=== PATIENT | female | born 1990 | race Caucasian/White ===

== ENCOUNTER → 2017-06-03 | Outpatient (CLI) | payer BC ==
[~2017-06-03] MED LIST: AZEL0.056; ERGO500037 PO; FLUT0.15 NAE; LEVO1IUD2 PV; LEVO200T PO; MECL1TAB42 PO; METF1000 PO; OMEP40CA41 PO; ONDA8TAB12 PO; PRED10TA PO
--- NOTE | 2017-06-03 10:07 | DIAGNOSTIC IMAGING REPORT ---
ULTRASOUND ABDOMEN COMPLETE CLINICAL HISTORY: Left upper quadrant and epigastric abdominal pain. Nausea. COMPARISON STUDY: No priors. TECHNIQUE: Real-time, grayscale, and color flow sonography of the abdomen was performed. Images are reviewed in the transverse and longitudinal planes. FINDINGS: Liver: The liver is normal in size and echotexture. There is no intrahepatic biliary ductal dilatation. The main portal vein is patent. Gallbladder: The gallbladder is normal in appearance. No gallstones are identified. There is no gallbladder wall thickening or pericholecystic fluid. A sonographic Chowdhury's sign is reportedly absent. The common bile duct measures up to 0.5 cm in diameter. Pancreas: Not well visualized due to overlying bowel gas. Spleen: The spleen is normal in size and echotexture, measuring 10.2 cm in length. Kidneys: The kidneys are normal in size and echotexture. There is no hydronephrosis. The right kidney measures 10.3 cm in length and the left kidney measures 10.5 cm in length. No shadowing calculi are identified. Abdominal vasculature: Visualized portions of the abdominal aorta and IVC are normal as imaged. Ascites: None. IMPRESSION: Unremarkable sonographic assessment of the abdomen. No gallstones are seen. Electronically signed by: Ren Ma M.D. 06/03/2017 10:06 AM Dictated Date/Time: 06/03/2017 9:59 AM
== END | disposition home or self-care (01) ==
LOC: C.ULTR 09:19
PROVIDERS: ATTEND Physician Assistant
DX: R10.13 Epigastric pain (principal); R10.12 Left upper quadrant pain; R11.2 Nausea with vomiting, unspecified

== ENCOUNTER → 2017-06-09 | Outpatient (CLI) | payer BC | END | disposition home or self-care (01) | LOC: C.LABSPEC 10:44 | PROVIDERS: ATTEND Physician Assistant | DX: Z01.419 Encounter for gynecological examination (general) (routine) without abnormal findings (principal) ==

== ENCOUNTER → 2017-06-09 | Outpatient (CLI) | payer BC | END | disposition home or self-care (01) | LOC: C.PAPS 11:26 | PROVIDERS: ATTEND Physician Assistant | DX: Z01.419 Encounter for gynecological examination (general) (routine) without abnormal findings (principal) ==

== ENCOUNTER 2017-06-23 18:51 | Emergency (ER) | payer BC ==
[~2017-06-23] VITALS: Ht 157.5 cm; Wt 144.3 kg
[~2017-06-23 18:51] MED LIST changes: +LEVO1IUD2 INT UTER; -LEVO1IUD2 PV; -ONDA8TAB12 PO
[2017-06-23 19:22] VITALS: Ht 157.5 cm; Wt 144.3 kg
[2017-06-23] MEDS ORDERED: ONDA8TAB12 PO (20:33)
[2017-06-23] MEDS ORDERED: ACETAMINOPHEN 500 MG TAB PO STA (21:15)
--- NOTE | 2017-06-23 21:20 | EMERGENCY ROOM VISIT NOTE ---
History Report prepared by Kari: Jose Delcid Under the Supervision of: Dr. Willie Mccabe D.O. First contact with patient: 21:13 Chief Complaint: TACHYCARDIA Stated Complaint: COUGH, FAST HEART RATE, CHEST PAIN- REFERRED Nursing Triage Summary: Patient ambulatory to triage with a steady and upright gait, states "I have been sick for a month. I had vomiting then a sinus infection then gastritis and acid reflux. Now, I am having a really bad cough. It's been brutal. I don't have any drainage and am not coughing anything. I saw the doctor just a little bit ago and they said that my heartrate was high. They did and EKG and told me to come here. I have some pain in my neck and chest. I think my throat is irritated." History of Present Illness The patient is a 27 year old female who presents to the Emergency Room with complaints of a worsening rapid heart rate over the past few days. She states that she was seen at a walk-in clinic prior to arrival due to a lingering cough , and was sent here due to her heart rate being in the 140s. The patient adds that she has been having chest burning. The patient says that she currently has a bad headache. She says that she was noted to have a fever here. The patient states that she has been sick for the past month, with the flu, then a sinus infection, and then gastritis. She notes that she had an EKG done at the clinic. The patient says that she took DayQuil this morning, and has taken that in the past. She denies any diarrhea or leg swelling or leg pain. The patient states that her last period was last month and it was normal. She says that she has thyroid disease and PCOS. Source of History: patient Onset: Over past few days Position: other (heart) Symptom Intensity: 140s Quality: other (rapid heart rate) Timing: worsening Associated Symptoms: + fevers, + headache, + cough, + chest pain, No diarrhea Note: Denies leg swelling or leg pain. Review of Systems See HPI for pertinent positives & negatives. A total of 10 systems reviewed and were otherwise negative. Past Medical & Surgical Medical Problems: (1) Hypothyroidism (2) Migraines Family History Cancer Diabetes mellitus Hypertension Social History Smoking Status: Never Smoker Marital Status: single Occupation Status: student Current/Historical Medications Scheduled Azithromycin (Zithromax Z-Ellis), 1 PKT PO UD Ergocalciferol (Vitamin D 33665 Unit), 50,000 UNIT PO WK Levonorgestrel (Iud) (Mirena), 1 DOSE INT UTER DIRECTED Thyroid (Lebo Thyroid), 1 TAB PO DAILY Scheduled PRN Ondansetron Hcl (Zofran), 8 MG PO TID PRN for Nausea or Vomiting Allergies Coded Allergies: Levothyroxine (Verified Allergy, Intermediate, "THROAT HIVES", 06/23/17) Physical Exam Vital Signs Date Time Temp Pulse Resp B/P (MAP) Pulse Ox O2 Delivery O2 Flow Rate FiO2 06/24/17 00:31 119/81 06/24/17 00:21 103 11 99 06/24/17 00:06 103 21 96 06/24/17 00:01 103/80 06/23/17 23:51 115 27 94 06/23/17 23:46 113 19 93 06/23/17 23:35 137/97 06/23/17 22:56 146 29 95 06/23/17 22:51 119 18 97 Room Air 06/23/17 22:36 137 19 95 06/23/17 22:31 135/72 06/23/17 22:21 126 24 98 06/23/17 22:06 123 26 97 06/23/17 22:01 127/89 06/23/17 21:51 129 26 95 Room Air 06/23/17 21:40 138 06/23/17 21:36 139 17 100 06/23/17 21:31 114/95 06/23/17 21:21 140 25 132/92 98 06/23/17 21:21 37.8 06/23/17 19:26 100 Room Air 06/23/17 19:22 38.0 137 20 159/106 97 Room Air Physical Exam GENERAL: Patient is awake, alert, and in no acute distress. Patient is resting comfortably and showing no signs of anxiety EYES: The conjunctivae are clear. The pupils are round and reactive. EARS, NOSE, MOUTH AND THROAT: The nose is without any evidence of any deformity. Mucous membranes are moist tongue is midline NECK: The neck is nontender and supple. RESPIRATORY: Lung sounds were diminished throughout. No tachypnea or conversational dyspnea. CARDIOVASCULAR: Heart sounds were tachycardic but regular. No definite murmurs noted to auscultation. GASTROINTESTINAL: The abdomen is soft. Bowel sounds are present in all quadrants. Abdomen is nontender MUSCULOSKELETAL/EXTREMITIES: There is no evidence of gross deformity full range of motion is noted in the hips and shoulders SKIN: There is no obvious evidence of any rash. There are no petechiae, pallor or cyanosis noted. NEUROLOGIC: Patient is awake alert and oriented x3 strength is symmetric patellar reflexes are 2+ bilaterally Medical Decision & Procedures ER Provider Diagnostic Interpretation: Radiology results as stated below per my review and radiologist interpretation: CHEST ONE VIEW PORTABLE HISTORY: EVALUATE RESPIRATORY DISTRESS.DYSPNEA COMPARISON: Chest 02/18/2015. FINDINGS: The lungs are clear. Cardiac silhouette is normal in size. No pleural effusions. No pneumothorax. Low lung volumes. IMPRESSION: No acute process. Electronically signed by: Delgado Galindo M.D. 06/23/2017 10:23 PM Dictated Date/Time: 06/23/2017 10:22 PM CTA CHEST: Motion artifact. No evidence of filling defect to suggest pulmonary embolism. Thoracic aorta within limits. No pericardial or pleural effusion. No focal consolidation. Radiologist: Basilio Hilliard MD Laboratory Results 06/23/17 21:40 Red Blood Count 4.73, Mean Corpuscular Volume 86.9, Mean Corpuscular Hemoglobin 30.2, Mean Corpuscular Hemoglobin Concent 34.8, Mean Platelet Volume 9.1, Neutrophils (%) (Auto) 71.4, Lymphocytes (%) (Auto) 14.2, Monocytes (%) (Auto) 11.0, Eosinophils (%) (Auto) 2.9, Basophils (%) (Auto) 0.4, Neutrophils # (Auto ) 5.72, Lymphocytes # (Auto) 1.14, Monocytes # (Auto) 0.88, Eosinophils # (Auto ) 0.23, Basophils # (Auto) 0.03 06/23/17 21:40 Test 06/23/17 21:00 06/23/17 21:26 06/23/17 21:40 Urine Color YELLOW Urine Appearance CLOUDY (CLEAR) Urine pH 6.5 (4.5-7.5) Urine Specific [place] 1.021 (1.000-1.030) Urine Protein NEG (NEG) Urine Glucose (UA) NEG (NEG) Urine Ketones NEG (NEG) Urine Occult Blood NEG (NEG) Urine Nitrite NEG (NEG) Urine Bilirubin NEG (NEG) Urine Urobilinogen NEG (NEG) Urine Leukocyte Esterase SMALL (NEG) Urine WBC (Auto) 5-10 /hpf (0-5) Urine RBC (Auto) 0-4 /hpf (0-4) Urine Hyaline Casts (Auto) 1-5 /lpf (0-5) Urine Epithelial Cells (Auto) >30 /lpf (0-5) Urine Bacteria (Auto) 2+ (NEG) Influenza Type A Antigen Neg for Influ A (NEG) Influenza Type B Antigen Neg for Influ B (NEG) White Blood Count 8.01 K/uL (4.8-10.8) Red Blood Count 4.73 M/uL (4.2-5.4) Hemoglobin 14.3 g/dL (12.0-16.0) Hematocrit 41.1 % (37-47) Mean Corpuscular Volume 86.9 fL (80-100) Mean Corpuscular Hemoglobin 30.2 pg (25-34) Mean Corpuscular Hemoglobin Concent 34.8 g/dl (32-36) Platelet Count 230 K/uL (130-400) Mean Platelet Volume 9.1 fL (7.4-10.4) Neutrophils (%) (Auto) 71.4 % Lymphocytes (%) (Auto) 14.2 % Monocytes (%) (Auto) 11.0 % Eosinophils (%) (Auto) 2.9 % Basophils (%) (Auto) 0.4 % Neutrophils # (Auto) 5.72 K/uL (1.4-6.5) Lymphocytes # (Auto) 1.14 K/uL (1.2-3.4) Monocytes # (Auto) 0.88 K/uL (0.11-0.59) Eosinophils # (Auto) 0.23 K/uL (0-0.5) Basophils # (Auto) 0.03 K/uL (0-0.2) RDW Standard Deviation 39.0 fL (36.4-46.3) RDW Coefficient of Variation 12.1 % (11.5-14.5) Immature Granulocyte % (Auto) 0.1 % Immature Granulocyte # (Auto) 0.01 K/uL (0.00-0.02) Prothrombin Time 10.6 SECONDS (9.0-12.0) Prothromb Time International Ratio 1.0 (0.9-1.1) Activated Partial Thromboplast Time 28.1 SECONDS (21.0-31.0) Partial Thromboplastin Ratio 1.1 D-Dimer 680 ug/L FEU (0-500) Anion Gap 6.0 mmol/L (3-11) Est Creatinine Clear Calc Drug Dose 149.0 ml/min Estimated GFR () 118.8 Estimated GFR (Non- 102.5 BUN/Creatinine Ratio 10.3 (10-20) Calcium Level 9.0 mg/dl (8.5-10.1) Total Bilirubin 0.4 mg/dl (0.2-1) Aspartate Amino Transf (AST/SGOT) 6 U/L (15-37) Alanine Aminotransferase (ALT/SGPT) 20 U/L (12-78) Alkaline Phosphatase 105 U/L (45-117) Troponin I < 0.015 ng/ml (0-0.045) Total Protein 8.2 gm/dl (6.4-8.2) Albumin 3.7 gm/dl (3.4-5.0) Globulin 4.5 gm/dl (2.5-4.0) Albumin/Globulin Ratio 0.8 (0.9-2) Human Chorionic Gonadotropin, Qual NEG (NEG) Laboratory results per my review. Medications Administered Medications (Trade) Dose Ordered Sig/Cassandra Route Start Time Stop Time Status Last Admin Dose Admin Acetaminophen (Tylenol Tab) 1,000 mg NOW STAT PO 06/23/17 21:15 06/23/17 21:17 DC 06/23/17 21:59 1,000 MG Sodium Chloride 1,000 ml @ 999 mls/hr Q1H1M STAT IV 06/23/17 23:48 06/24/17 00:48 DC 06/23/17 23:57 999 MLS/HR ECG Per My Interpretation Indication: palpitations Rate (beats per minute): 139 Rhythm: sinus tachycardia Findings: no ectopy, other (no acute ST segment abnormalties) Comparison ECG Date: increased rate otherwise no significant change from ED Course 2013: The patient was evaluated in room C12B. A complete history and physical examination were performed. 2113: Ordered Tylenol Tab 1000 mg PO. 8: Ordered NSS 1000 ml @ 999 mls/hr IV. 2356: Upon reevaluation, the patient is resting. I discussed the results and treatment plan with her. She verbalized agreement of the treatment plan. She was discharged home. Medical Decision Differential diagnosis: Etiologies such as premature contractions, electrolyte abnormality, cardiac dysrhythmia, thyroid dysfunction, pulmonary embolism, infection, gastrointestinal, as well as others were entertained. Nursing notes reviewed. The patient is a 27-year-old female who presented to the emergency department for an evaluation of tachycardia. She has been experiencing cough bronchitis symptoms but was sent to the emergency department from her primary care physician's office for CT the chest because of persistent tachycardia. The patient was treated with IV fluids and Tylenol in the emergency department. I discussed the patient's laboratory and radiographic studies with her. She was encouraged to call her primary care physician and schedule a follow-up appointment. Also recommended that she continue all medications as prescribed and return to the emergency department immediately if symptoms change worsen or the need arises. I also advised her not use any [id number]-[id number] medications it could increase her heart rate. Medication Reconcilliation Current Medication List: was personally reviewed by me Blood Pressure Screening Patient's blood pressure: Elevated blood pressure Blood pressure disposition: Elevated BP felt to be situational Impression Primary Impression: Bronchitis Additional Impression: Tachycardia Scribe Attestation The scribe's documentation has been prepared under my direction and personally reviewed by me in its entirety. I confirm that the note above accurately reflects all work, treatment, procedures, and medical decision making performed by me. Departure Information Dispostion Home / Self-Care Prescriptions Azithromycin (ZITHROMAX Z-ELLIS) 250 Mg Tab 1 PKT PO UD for 5 Days, #1 PKT Prov: Willie Mccabe, 06/24/17 Referrals Micki Cabral PA-C (PCP) Patient Instructions Bronchitis Acute, [facility], Tachycardia Additional Instructions Call your family doctor to schedule a follow-up appointment. Continue using Motrin and Tylenol as directed for body aches and fever. Avoid any strenuous activity. If symptoms are not improved within 48 hours start the antibiotic. Return to the emergency department immediately if symptoms change worsen or the need arises. Problem Qualifiers
[2017-06-23 21:21] VITALS: TEMP 37.8
[2017-06-23] MEDS ORDERED: THY/30 PO (21:52)
[2017-06-23 21:59] LABS: BASO % 0.4 %; BASO ABS # 0.03 K/uL (0-0.2); EOS % 2.9 %; EOS ABS # 0.23 K/uL (0-0.5); HEMATOCRIT 41.1 % (37-47); HEMOGLOBIN 14.3 g/dL (12.0-16.0); IG# 0.01 K/uL (0.00-0.02); LYMPH % 14.2 %; LYMPH ABS # 1.14 K/uL (1.2-3.4); MEAN CELL VOLUME 86.9 fL (80-100); MEAN CORPUSCULAR HEMOGLOBIN 30.2 pg (25-34); MEAN CORPUSCULAR HGB CONC 34.8 g/dl (32-36); MEAN PLATELET VOLUME 9.1 fL (7.4-10.4); MONO ABS # 0.88 K/uL (0.11-0.59); NEUT % 71.4 %; NEUT ABS # 5.72 K/uL (1.4-6.5); PLATELET COUNT 230 K/uL (130-400); RED CELL DISTRIBUTION WIDTH CV 12.1 % (11.5-14.5); WHITE BLOOD COUNT 8.01 K/uL (4.8-10.8)
[2017-06-23 22:10] LABS: PTT PATIENT 28.1 SECONDS (21.0-31.0)
[2017-06-23 22:16] LABS: INFLUENZA B ANTIGEN Neg for Influ B (NEG)
[2017-06-23 22:20] LABS: ALBUMIN 3.7 gm/dl (3.4-5.0); ALT/SGPT 20 U/L (12-78); BLOOD UREA NITROGEN 8 mg/dl (7-18); CARBON DIOXIDE 29 mmol/L (21-32); GLUCOSE 83 mg/dl (70-99); POTASSIUM 3.7 mmol/L (3.5-5.1); SODIUM 138 mmol/L (136-145)
--- NOTE | 2017-06-23 22:24 | DIAGNOSTIC IMAGING REPORT ---
CHEST ONE VIEW PORTABLE HISTORY: EVALUATE RESPIRATORY DISTRESS.DYSPNEA COMPARISON: Chest 02/18/2015. FINDINGS: The lungs are clear. Cardiac silhouette is normal in size. No pleural effusions. No pneumothorax. Low lung volumes. IMPRESSION: No acute process. Electronically signed by: Delgado Galindo M.D. 06/23/2017 10:23 PM Dictated Date/Time: 06/23/2017 10:22 PM
[2017-06-23 22:25] LABS: ALKALINE PHOSPHATASE 105 U/L (45-117); AST/SGOT 6 U/L (15-37); TOTAL PROTEIN 8.2 gm/dl (6.4-8.2)
[2017-06-23] MEDS ORDERED: OPTIRAY 320 IV PRN (22:45)
[2017-06-23] MEDS ORDERED: SODIUM CHLORIDE 0.9% 1000ML 1,000 ML IV STA (23:48)
[2017-06-24] MEDS ORDERED: AZITTAB PO (00:12)
[2017-06-24 00:21] VITALS: PULSE 103; O2SAT 99
[2017-06-24 00:31] VITALS: BP 119/81
--- NOTE | 2017-06-24 06:48 | DIAGNOSTIC IMAGING REPORT ---
(CHEST FOR PE) ANGIO WITH CT DOSE: 620.29 mGy.cm HISTORY: Chest pain dyspnea TECHNIQUE: Multiaxial CT images of the chest were performed following the intravenous administration of contrast to evaluate the pulmonary arteries. Maximal intensity projection images were also obtained. A dose lowering technique was utilized adhering to the principles of ALARA. COMPARISON STUDY: None. FINDINGS: There is a normal caliber thoracic aorta with no evidence for dissection. There is no evidence for pulmonary embolus. No pleural effusions. No pneumothorax. The liver and spleen are unremarkable. No mediastinal or hilar lymphadenopathy. The central airways are patent. The lungs are clear. IMPRESSION: No evidence for pulmonary embolus. The above report was generated using voice recognition software. It may contain grammatical, syntax or spelling errors. Electronically signed by: Clayton Brown M.D. 06/24/2017 6:47 AM Dictated Date/Time: 06/24/2017 6:46 AM
== END 2017-06-24 00:38 | disposition home or self-care (01) ==
LOC: C.EDB 18:53 → C.EDC 06-24 00:38
DX: J40 Bronchitis, not specified as acute or chronic (principal); R00.0 Tachycardia, unspecified; E03.9 Hypothyroidism, unspecified; E28.2 Polycystic ovarian syndrome; Z79.899 Other long term (current) drug therapy; Z88.8 Allergy status to other drugs, medicaments and biological substances; Z97.5 Presence of (intrauterine) contraceptive device; Z82.49 Family history of ischemic heart disease and other diseases of the circulatory system; Z83.3 Family history of diabetes mellitus

== ENCOUNTER 2017-08-10 09:54 | Emergency (ER) | payer BC ==
[~2017-08-10] VITALS: Ht 157.5 cm; Wt 146.1 kg
[~2017-08-10 09:54] MED LIST changes: -AZEL0.056; -FLUT0.15 NAE; -LEVO200T PO; -MECL1TAB42 PO; -METF1000 PO; -OMEP40CA41 PO; +ONDA8TAB12 PO; -PRED10TA PO; +THY/30 PO
[2017-08-10 10:01] VITALS: TEMP 36.9; Ht 157.5 cm; Wt 146.1 kg
--- NOTE | 2017-08-10 10:30 | EMERGENCY ROOM VISIT NOTE ---
History Report prepared by Kari: Stacy Posada Under the Supervision of: Dr. Alexey Garcia M.D. First contact with patient: 10:15 Chief Complaint: HEADACHE Stated Complaint: NAUSEA, HEADACHE, SWEATS History of Present Illness The patient is a 27 year old female who presents to the Emergency Room with complaints of constant vomiting beginning last night. The patient also reports a headache which she states is "the worst headache of my life". The patient has a history of migraines. She states the last time she was able to keep food down was last night. She also reports mild abdominal pain and nausea. The patient has an IUD. The patient was seen by her PCP this morning who referred her to the ED. Source of History: patient Onset: last night Position: other (generalized) Quality: other (vomiting) Timing: constant Associated Symptoms: + headache, + nausea, + vomiting, + abdominal pain Review of Systems See HPI for pertinent positives & negatives. A total of 10 systems reviewed and were otherwise negative. Past Medical & Surgical Medical Problems: (1) Hypothyroidism (2) Migraines Family History Cancer Diabetes mellitus Hypertension Social History Smoking Status: Never Smoker Marital Status: single Occupation Status: student Current/Historical Medications Scheduled Ergocalciferol (Vitamin D 14942 Unit), 50,000 UNIT PO WK Levonorgestrel (Iud) (Mirena), 1 DOSE INT UTER DIRECTED Pantoprazole (Protonix), 40 MG PO BID Ranitidine (Zantac), 150 MG PO DAILY Scheduled PRN Ondansetron Hcl (Zofran), 8 MG PO TID PRN for Nausea or Vomiting Allergies Coded Allergies: Levothyroxine (Verified Allergy, Intermediate, "THROAT HIVES", 08/10/17) Physical Exam Vital Signs Date Time Temp Pulse Resp B/P (MAP) Pulse Ox O2 Delivery O2 Flow Rate FiO2 08/10/17 12:47 96 16 146/89 97 08/10/17 12:16 96 16 146/89 97 Room Air 08/10/17 10:01 36.9 131 18 131/81 95 Room Air Physical Exam GENERAL: Awake, alert, well-appearing, laughing on exam, in no acute distress HENT: Normocephalic, atraumatic. Oropharynx unremarkable. EYES: Normal conjunctiva. Sclera non-icteric. NECK: Supple. No nuchal rigidity. FROM. No JVD. No evidence of meningitis or encephalitis on exam. RESPIRATORY: Clear to auscultation. CARDIAC: Regular rate, normal rhythm. Extremities warm and well perfused. Pulses equal. ABDOMEN: Soft, non-distended. No tenderness to palpation. No rebound or guarding. No masses. RECTAL: Deferred. MUSCULOSKELETAL: Chest examination reveals no tenderness. The back is symmetrical on inspection without obvious abnormality. There is no CVA tenderness to palpation. No joint edema. LOWER EXTREMITIES: Calves are equal size bilaterally and non-tender. No edema. No discoloration. NEURO: Normal sensorium. No sensory or motor deficits noted. SKIN: No rash or jaundice noted. Medical Decision & Procedures ER Provider Diagnostic Interpretation: Radiology results as stated below per my review and radiologist interpretation: CT HEAD WITHOUT CONTRAST (CT) FINDINGS: No intra or extra-axial mass lesions are visualized. There is no CT evidence of acute cortical infarction. There is no evidence of midline shift. There is no acute hemorrhage. No calvarial fractures are visualized. There is a stable prominent left posterior parietal lobe sulcus. There is no evidence of pathologic ventricular dilatation. There is no evidence of acute sinusitis IMPRESSION: No acute intracranial findings Electronically signed by: Constantine Fonseca M.D. Laboratory Results 08/10/17 11:00 Red Blood Count 4.90, Mean Corpuscular Volume 85.5, Mean Corpuscular Hemoglobin 30.4, Mean Corpuscular Hemoglobin Concent 35.6, Mean Platelet Volume 9.2, Neutrophils (%) (Auto) 85.9, Lymphocytes (%) (Auto) 7.3, Monocytes (%) (Auto) 5.3, Eosinophils (%) (Auto) 1.1, Basophils (%) (Auto) 0.1, Neutrophils # (Auto) 10.11, Lymphocytes # (Auto) 0.86, Monocytes # (Auto) 0.62, Eosinophils # (Auto) 0.13, Basophils # (Auto) 0.01 08/10/17 11:00 Test 08/10/17 11:00 White Blood Count 11.76 K/uL (4.8-10.8) Red Blood Count 4.90 M/uL (4.2-5.4) Hemoglobin 14.9 g/dL (12.0-16.0) Hematocrit 41.9 % (37-47) Mean Corpuscular Volume 85.5 fL (80-100) Mean Corpuscular Hemoglobin 30.4 pg (25-34) Mean Corpuscular Hemoglobin Concent 35.6 g/dl (32-36) Platelet Count 237 K/uL (130-400) Mean Platelet Volume 9.2 fL (7.4-10.4) Neutrophils (%) (Auto) 85.9 % Lymphocytes (%) (Auto) 7.3 % Monocytes (%) (Auto) 5.3 % Eosinophils (%) (Auto) 1.1 % Basophils (%) (Auto) 0.1 % Neutrophils # (Auto) 10.11 K/uL (1.4-6.5) Lymphocytes # (Auto) 0.86 K/uL (1.2-3.4) Monocytes # (Auto) 0.62 K/uL (0.11-0.59) Eosinophils # (Auto) 0.13 K/uL (0-0.5) Basophils # (Auto) 0.01 K/uL (0-0.2) RDW Standard Deviation 37.8 fL (36.4-46.3) RDW Coefficient of Variation 12.2 % (11.5-14.5) Immature Granulocyte % (Auto) 0.3 % Immature Granulocyte # (Auto) 0.03 K/uL (0.00-0.02) Anion Gap 9.0 mmol/L (3-11) Est Creatinine Clear Calc Drug Dose 182.1 ml/min Estimated GFR () 142.3 Estimated GFR (Non- 122.8 BUN/Creatinine Ratio 20.2 (10-20) Calcium Level 8.7 mg/dl (8.5-10.1) Total Bilirubin 0.6 mg/dl (0.2-1) Direct Bilirubin 0.2 mg/dl (0-0.2) Aspartate Amino Transf (AST/SGOT) 5 U/L (15-37) Alanine Aminotransferase (ALT/SGPT) 21 U/L (12-78) Alkaline Phosphatase 102 U/L (45-117) Total Protein 7.9 gm/dl (6.4-8.2) Albumin 3.5 gm/dl (3.4-5.0) Lipase 91 U/L (73-393) Human Chorionic Gonadotropin, Qual NEG (NEG) Labs reviewed by ED physician. Medications Administered Medications (Trade) Dose Ordered Sig/Cassandra Route Start Time Stop Time Status Last Admin Dose Admin Sodium Chloride 1,000 ml @ 999 mls/hr Q1H1M STAT IV 08/10/17 10:36 08/10/17 11:36 DC 08/10/17 11:01 999 MLS/HR Ketorolac Tromethamine (Toradol Inj) 30 mg NOW STAT IV 08/10/17 10:36 08/10/17 10:39 DC 08/10/17 11:01 30 MG Prochlorperazine Edisylate (Compazine Inj) 10 mg NOW STAT IV 08/10/17 10:36 08/10/17 10:39 DC 08/10/17 11:02 10 MG Diphenhydramine HCl (Benadryl Inj) 50 mg NOW STAT IV 08/10/17 10:36 08/10/17 10:39 DC 08/10/17 11:01 50 MG Magnesium Sulfate (Magnesium Sulfate) 1 gm NOW STAT IV 08/10/17 10:36 08/10/17 10:39 DC 08/10/17 11:01 1 GM ECG Per My Interpretation Indication: vomiting Rate (beats per minute): 125 Rhythm: sinus tachycardia Findings: other (no ST elevation or depression, normal axis) Change: Repeat: Sinus tachycardia 101 bpm, no ST elevation or depression ED Course 1022: Past medical records reviewed. The patient was evaluated in room B11B. A complete history and physical examination was performed. 1036: Ordered Magnesium Sulfate 1 gm IV, Benadryl Inj 50 mg IV, Compazine Inj 10 mg IV, Toradol Inj 30 mg IV, Sodium Chloride 1000 ml @ 999 mls/hr. 1128:The patient is feeling better on reassessment. 1239: Upon reexamination the patient is resting comfortably. I discussed results and treatment plan with the patient. She verbalizes agreement and understanding. The patient is ready for discharge. Medical Decision Differential diagnosis: Etiologies such as migraine headache, meningitis, sinusitis, CO exposure, ICH, SAH, infection, tumor, headache, sinus thrombosis, arterial dissection, as well as others were entertained. This is a 27-year-old female who presents emergency department complaining of vomiting as well as a headache. The patient reports this is not the worst headache of her life and she does not have any evidence of meningitis or encephalitis on examination. The patient was sent for CAT scan of the head which did not show any acute process. In addition the patient has a slight elevation in her white blood cell count which I believe is from vomiting. She is given a normal saline bolus as well as Toradol Compazine and Benadryl. Using shared medical decision making the patient refused a lumbar puncture here in the emergency department however I stressed the need to return for an LP if she continues to have a headache and is unable to keep anything down. Patient and significant other were in agreement with the treatment plan. Medication Reconcilliation Current Medication List: was personally reviewed by me Blood Pressure Screening Patient's blood pressure: Elevated blood pressure Blood pressure disposition: Referred to PCP Impression Primary Impression: Vomiting Scribe Attestation The scribe's documentation has been prepared under my direction and personally reviewed by me in its entirety. I confirm that the note above accurately reflects all work, treatment, procedures, and medical decision making performed by me. Departure Information Dispostion Home / Self-Care Referrals Micki Cabral PA-C (PCP) Forms HOME CARE DOCUMENTATION FORM, IMPORTANT VISIT INFORMATION Patient Instructions Headache Pain, [facility] Additional Instructions You have been examined and treated today on an emergency basis only. This is not a substitute for, or an effort to provide, complete comprehensive medical care. It is impossible to recognize and treat all injuries or illnesses in a single emergency department visit. It is therefore important that you follow up closely with Dr Cabral. Call as soon as possible for an appointment. Thank you for your time and consideration. I look forward to speaking with you again soon. Please don't hesitate to call us if you have any questions. Problem Qualifiers Primary Impression: Vomiting Vomiting type: unspecified Vomiting Intractability: unspecified Nausea presence: unspecified Qualified Codes: R11.10 - Vomiting, unspecified
[2017-08-10] MEDS ORDERED: KETOROLAC TROMETHAMINE 30 MG/ML VIAL IV STA (10:36)
[2017-08-10] MEDS ORDERED: MAGNESIUM SULFATE 1GM / D5W 1 GM BAG IV STA (10:36)
[2017-08-10] MEDS ORDERED: SODIUM CHLORIDE 0.9% 1000ML 1,000 ML IV STA (10:36)
[2017-08-10] MEDS ORDERED: DiphenhydrAMINE HCL 50 MG/ML VIAL IV STA (10:36)
[2017-08-10] MEDS ORDERED: PROCHLORPERAZINE 5 MG/ML 2 ML VIAL IV STA (10:36)
[2017-08-10] MEDS ORDERED: RANI150T85 PO (10:40)
[2017-08-10] MEDS ORDERED: PANT40TA PO (10:40)
[2017-08-10 11:10] LABS: BASO % 0.1 %; BASO ABS # 0.01 K/uL (0-0.2); EOS % 1.1 %; EOS ABS # 0.13 K/uL (0-0.5); HEMATOCRIT 41.9 % (37-47); HEMOGLOBIN 14.9 g/dL (12.0-16.0); IG# 0.03 K/uL (0.00-0.02); LYMPH % 7.3 %; LYMPH ABS # 0.86 K/uL (1.2-3.4); MEAN CELL VOLUME 85.5 fL (80-100); MEAN CORPUSCULAR HEMOGLOBIN 30.4 pg (25-34); MEAN CORPUSCULAR HGB CONC 35.6 g/dl (32-36); MEAN PLATELET VOLUME 9.2 fL (7.4-10.4); MONO % 5.3 %; MONO ABS # 0.62 K/uL (0.11-0.59); NEUT % 85.9 %; NEUT ABS # 10.11 K/uL (1.4-6.5); PLATELET COUNT 237 K/uL (130-400); RED CELL DISTRIBUTION WIDTH CV 12.2 % (11.5-14.5); RED CELL DISTRIBUTION WIDTH SD 37.8 fL (36.4-46.3); WHITE BLOOD COUNT 11.76 K/uL (4.8-10.8)
[2017-08-10 11:27] LABS: ALBUMIN 3.5 gm/dl (3.4-5.0); CALCIUM 8.7 mg/dl (8.5-10.1); CREATININE 0.66 mg/dl (0.60-1.20); POTASSIUM 3.7 mmol/L (3.5-5.1)
[2017-08-10 11:30] LABS: TOTAL PROTEIN 7.9 gm/dl (6.4-8.2)
--- NOTE | 2017-08-10 12:06 | DIAGNOSTIC IMAGING REPORT ---
CT HEAD WITHOUT CONTRAST (CT) CLINICAL HISTORY: Weakness, nausea, headache, sweats. COMPARISON STUDY: 03/12/2013 TECHNIQUE: Axial CT of the brain is performed from the vertex to the skull base. IV contrast was not administered for this examination. A dose lowering technique was utilized adhering to the principles of ALARA. CT DOSE: 614.27 mGy.cm FINDINGS: No intra or extra-axial mass lesions are visualized. There is no CT evidence of acute cortical infarction. There is no evidence of midline shift. There is no acute hemorrhage. No calvarial fractures are visualized. There is a stable prominent left posterior parietal lobe sulcus. There is no evidence of pathologic ventricular dilatation. There is no evidence of acute sinusitis IMPRESSION: No acute intracranial findings Electronically signed by: Constantine Fonseca M.D. 08/10/2017 12:04 PM Dictated Date/Time: 08/10/2017 11:58 AM
[2017-08-10 12:47] VITALS: BP 146/89; PULSE 96; O2SAT 97
== END 2017-08-10 12:48 | disposition home or self-care (01) ==
LOC: C.EDB 09:56
DX: R11.2 Nausea with vomiting, unspecified (principal); D72.829 Elevated white blood cell count, unspecified; R51 Headache; R10.9 Unspecified abdominal pain; Z97.5 Presence of (intrauterine) contraceptive device; Z88.8 Allergy status to other drugs, medicaments and biological substances; Z83.3 Family history of diabetes mellitus; Z82.49 Family history of ischemic heart disease and other diseases of the circulatory system

== ENCOUNTER → 2017-09-14 | Outpatient (CLI) | payer BC ==
[~2017-09-14] MED LIST changes: +PANT40TA PO; +RANI150T85 PO; -THY/30 PO
== END | disposition home or self-care (01) ==
LOC: C.LABPVFM 07:36
PROVIDERS: ATTEND Internal Medicine Endocrinology, Diabetes & Metabolism
DX: E03.9 Hypothyroidism, unspecified (principal)

== ENCOUNTER 2018-10-10 21:54 | Inpatient (IN) ==
[2018-10-11] MEDS ORDERED: ZOLPIDEM TARTRATE 10 MG TAB PO ONE (01:02)
--- NOTE | 2018-10-11 01:13 | Obstetrical Progress Note ---
Date of Service October 11, 2018 Assessment & Plan (1) Supervision of normal intrauterine in primigravida: Subjective The patient is a 28-year-old 1 para 0 cc of 1 unit 40+ weeks gestational age who presents to labor and delivery for labor check. Patient states that she has been having contractions for the last 24 hours but they increased in intensity within the last 6 hours. She denies rupture of membranes or vaginal bleeding. The patient transferred her obstetrical. The patient transferred her care to this practice at 26 weeks gestational age and has been unremarkable to date. Patient had a growth scan at 32 weeks for morbid obesity which showed an estimated weight at the 50th percentile. Physical Exam Gastrointestinal (Abdomen): Gravid, vertex, mild palpable contractions every 6 minutes Genitourinary: OB Exam Monitor Tracing: + category I Cervix: 1 cm / 50%/-2 Results & Data Vital Signs (Past 12 Hours) Vital Signs Temp Pulse Resp BP 10/11/18 01:02 96 H 145/95 H 10/10/18 22:39 90 142/95 H 10/10/18 22:16 104 H 152/89 H 10/10/18 22:11 111 H 157/94 H 10/10/18 22:09 36.6 C 111 H 18 157/94 H 10/10/18 22:06 36.6 C 18 10/10/18 22:05 117 H 151/97 H
[2018-10-11] MEDS ORDERED: OXYTOCIN 30 UNITS/500 ML BAG IV PRN ×3 (01:25→17:15)
[2018-10-11] MEDS ORDERED: PENICILLIN G POTASSIUM 6 MU in DEXTROSE 5% 250 ML IV STA (01:32)
--- NOTE | 2018-10-11 01:40 | History & Physical Report ---
Date of Service October 11, 2018 Assessment & Plan (1) Supervision of normal intrauterine in primigravida: - heart rate tracing category 1 -Patient has been observed for over 2 hours with no cervical change -However, patient has persistently elevated blood pressures with diastolics in the high 80s low 90s -Patient was seen in the office today for routine OB check and had +1 protein, trace protein on presentation here- -considering the elevated blood pressure postterm, do not feel prudent to discharge patient home. -We will admit patient and start GBS prophylaxis -We will check preeclamptic labs -We will observe for spontaneous cervical change -If no cervical change in 4 hours will start Pitocin -Discussed with patient, all questions answered History of Present Illness Chief Complaint: Labor Check Primary Care Provider: Micki Cabral PA-C The patient is a 28-year-old 1 para 0 with an EDC of 07 October at 40+ weeks gestational age who presented to labor and delivery for labor check. The patient had been having contractions for the previous 24 hours, but they increased in intensity over the last 6 hours. The patient denied rupture of membranes or vaginal bleeding. The patient transferred her obstetrical care to this practice at 26 weeks gestational age. She had a growth scan at 32 weeks gestational age for morbid obesity which showed an estimated weight at the 58th percentile. The patient had a suboptimal cardiac examination on anatomy scan, but had a normal echocardiogram. Laboratory values for the show blood type of O+, antibody negative, rubella immune, hepatitis B negative, she had a normal 1 hour Glucola at 16 and 28 weeks, and a positive third trimester beta strep culture. Allergies Allergy/AdvReac Type Severity Reaction Status Date / Time levothyroxine Allergy Intermediate Hives Verified 10/10/18 23:08 Home Medications Home Medications Medication Instructions Recorded Confirmed Type levothyroxine 200 mcg PO DAILY 10/10/18 10/10/18 History nystatin 1 applic TOPICAL BID PRN 10/10/18 10/10/18 History vit no.[id number] 1 tab PO DAILY 10/10/18 10/10/18 History [ Vitamin] Patient History Medical History Migraines (Chronic) Hypothyroidism (Chronic) Follows with Dr. Strauss GERD (gastroesophageal reflux disease) Insulin resistance PCOS (polycystic ovarian syndrome) [place] teeth removed Bronchitis (Resolved) Headache (Resolved) Pleurisy (Resolved) Urticaria (Resolved) Family History Other Cancer Diabetes Gallbladder disease Hypertension Social History Preferred Language: [place] marital status: Current Living Situation: Significant Other Feels Safe at Home: Yes Safety Concerns: Feels Safe At This Time Smoking Status: Never smoker Do You Dip or Chew Tobacco: No Second Hand Exposure: No Tobacco Cessation Education Requested by Patient: No Hx Alcohol Use: No Hx Substance Use: No Physical Exam Constitutional: WD/WN, vitals as above Respiratory: Auscultation: lungs clear to auscultation bilaterally Cardiovascular: RRR, no murmur, no edema Extremities: no calf tenderness Gastrointestinal (Abdomen): Gravid, vertex, positive heart tones, estimated weight of 7-1/2 pounds, Genitourinary: Cervix: 1 cm / 50%/-2 station Results & Data Vital Signs (Past 12 Hours) Vital Signs Temp Pulse Pulse Resp BP BP 10/11/18 01:15 95 H 18 141/78 H 10/11/18 01:13 95 H 141/78 H 10/11/18 01:02 96 H 145/95 H 10/10/18 22:39 90 142/95 H 10/10/18 22:16 104 H 152/89 H 10/10/18 22:11 111 H 157/94 H 10/10/18 22:09 36.6 C 111 H 18 157/94 H 10/10/18 22:06 36.6 C 18 10/10/18 22:05 117 H 151/97 H
[2018-10-11 02:04] LABS: Hematocrit (blood only) 40.9 % (37-47); Hemoglobin 14.1 g/dL (12.0-16.0); Mean Platelet Volume 10.3 fL (7.4-10.4); Platelet Count 229 K/uL (130-400); RDW Coefficient of Variation 13.4 % (11.5-14.5); RDW Standard Deviation 41.4 fL (36.4-46.3); Red Blood Count 4.81 M/uL (4.2-5.4); White Blood Count 18.78 K/uL (4.8-10.8)
[2018-10-11] MEDS: LACTATED RINGER'S 1,000 ML IV PRN ×3 (02:05→09:58)
[2018-10-11 02:06] LABS: Mean Corpuscular Hgb Conc 34.5 g/dL (32-36)
[2018-10-11 02:12] LABS: INR 0.9 (0.9-1.1); Prothrombin Time 9.4 Seconds (9.0-12.0)
[2018-10-11 02:20] LABS: Alanine Aminotransferase 14 U/L (12-78); Albumin Level 2.8 gm/dl (3.4-5.0); Aspartate Aminotransferase 8 U/L (15-37); Bilirubin Direct < 0.1 mg/dl (0-0.2); Creatinine Clr Calc Pharmacy 241.7 ml/min; Est GFR (African American) > 150.0; Est GFR (Non-African American) 131.9; Uric Acid 4.6 mg/dl (2.6-7.2)
[2018-10-11 02:23] LABS: Alkaline Phosphatase 221 U/L (45-117); Bilirubin,Total 0.3 mg/dl (0.2-1); Total Protein 7.7 gm/dl (6.4-8.2)
[2018-10-11] MEDS ORDERED: CALCIUM CARBONATE 500 MG CHEWABLE TAB ONE (02:51)
[2018-10-11] MEDS: BUTORPHANOL TARTRATE 2 MG/ML VIAL IV PRN ×2 (03:13→05:29)
[2018-10-11] MEDS: PENICILLIN G POTASSIUM 3 MU in DEXTROSE 5% 100 ML IV PRN ×3 (06:09→14:41)
--- NOTE | 2018-10-11 06:14 | Labor Progress Brief Note ---
Date of Service October 11, 2018 Subjective Stadol x2, Assessment & Plan (1) Supervision of normal intrauterine in primigravida: -Tracing category 1 -PIH labs all within normal limits -While the patient has made cervical change, contractions have spaced with Stadol -We will start Pitocin per induction protocol Physical Exam Genitourinary: Cervix: 3 cm / 80%/-2 Results & Data Vital Signs (Past 12 Hours) Vital Signs Temp Pulse Pulse Resp BP BP Pulse Ox 10/11/18 06:10 109 H 91 10/11/18 06:05 107 H 93 10/11/18 06:00 114 H 93 10/11/18 05:53 127 H 92 10/11/18 05:48 111 H 93 10/11/18 05:43 108 H 94 10/11/18 05:38 109 H 95 10/11/18 05:36 110 H 120/67 10/11/18 05:34 109 H 85 L 10/11/18 05:33 109 H 94 10/11/18 05:28 111 H 94 10/11/18 05:23 113 H 94 10/11/18 05:18 109 H 96 10/11/18 05:13 128 H 95 10/11/18 05:01 109 H 98 10/11/18 04:56 105 H 95 10/11/18 04:51 117 H 96 10/11/18 04:46 102 H 96 10/11/18 04:41 102 H 96 10/11/18 04:36 110 H 95 10/11/18 04:32 36.5 C 18 10/11/18 04:31 110 H 147/80 H 91 10/11/18 04:26 95 H 93 10/11/18 04:21 93 H 94 10/11/18 04:16 93 H 94 10/11/18 04:11 97 H 95 10/11/18 04:06 93 H 92 10/11/18 04:01 96 H 92 10/11/18 03:56 98 H 92 10/11/18 03:51 111 H 93 10/11/18 03:46 97 H 91 10/11/18 03:41 106 H 92 10/11/18 03:36 105 H 93 10/11/18 03:31 98 H 91 10/11/18 03:26 101 H 90 10/11/18 03:21 102 H 94 10/11/18 03:16 107 H 94 10/11/18 03:11 107 H 93 10/11/18 03:10 105 H 142/86 H 10/11/18 03:06 111 H 94 10/11/18 03:01 113 H 92 10/11/18 02:52 138 H 94 10/11/18 02:47 120 H 93 10/11/18 02:42 134 H 94 10/11/18 01:15 95 H 18 141/78 H 10/11/18 01:13 95 H 141/78 H 10/11/18 01:02 96 H 145/95 H 10/10/18 22:39 90 142/95 H 10/10/18 22:16 104 H 152/89 H 10/10/18 22:11 111 H 157/94 H 10/10/18 22:09 36.6 C 111 H 18 157/94 H 10/10/18 22:06 36.6 C 18 10/10/18 22:05 117 H 151/97 H
--- NOTE | 2018-10-11 09:20 | Obstetrical Progress Note ---
Date of Service October 11, 2018 Assessment & Plan (1) Supervision of normal intrauterine in primigravida: - Tracing category 1 - PIH labs all within normal limits - Progressing. AROM clr, FSE, IUPC placed - Continue Pitocin per induction protocol - requesting epidural Subjective Painful with contractions Physical Exam Genitourinary: OB Exam Abdomen: + vertex Manual OB Exam: + cervical dilation 4 cm, + cervical effacement 80%, + station -2 and + amniotic fluid clear OB Exam Monitor Tracing: + scalp electrode used, + intra-uterine pressure catheter used and + category I Results & Data Vital Signs (Past 12 Hours) Vital Signs Temp Pulse Pulse Resp BP BP Pulse Ox 10/11/18 08:30 118 H 95 10/11/18 08:25 117 H 97 10/11/18 08:20 117 H 95 10/11/18 08:15 128 H 98 10/11/18 08:14 114 H 82 L 10/11/18 07:26 112 H 143/85 H 10/11/18 07:25 36.7 C 22 10/11/18 06:45 109 H 93 10/11/18 06:40 109 H 94 10/11/18 06:35 120 H 95 10/11/18 06:30 109 H 93 10/11/18 06:25 108 H 94 10/11/18 06:20 112 H 92 10/11/18 06:15 117 H 94 10/11/18 06:10 109 H 91 10/11/18 06:05 107 H 93 10/11/18 06:00 114 H 93 10/11/18 05:53 127 H 92 10/11/18 05:48 111 H 93 10/11/18 05:43 108 H 94 10/11/18 05:38 109 H 95 10/11/18 05:36 110 H 120/67 10/11/18 05:34 109 H 85 L 10/11/18 05:33 109 H 94 10/11/18 05:28 111 H 94 10/11/18 05:23 113 H 94 10/11/18 05:18 109 H 96 10/11/18 05:13 128 H 95 10/11/18 05:01 109 H 98 10/11/18 04:56 105 H 95 10/11/18 04:51 117 H 96 10/11/18 04:46 102 H 96 10/11/18 04:41 102 H 96 10/11/18 04:36 110 H 95 10/11/18 04:32 36.5 C 18 10/11/18 04:31 110 H 147/80 H 91 10/11/18 04:26 95 H 93 10/11/18 04:21 93 H 94 10/11/18 04:16 93 H 94 10/11/18 04:11 97 H 95 10/11/18 04:06 93 H 92 10/11/18 04:01 96 H 92 10/11/18 03:56 98 H 92 10/11/18 03:51 111 H 93 10/11/18 03:46 97 H 91 10/11/18 03:41 106 H 92 10/11/18 03:36 105 H 93 10/11/18 03:31 98 H 91 10/11/18 03:26 101 H 90 10/11/18 03:21 102 H 94 10/11/18 03:16 107 H 94 10/11/18 03:11 107 H 93 10/11/18 03:10 105 H 142/86 H 10/11/18 03:06 111 H 94 10/11/18 03:01 113 H 92 10/11/18 02:52 138 H 94 10/11/18 02:47 120 H 93 10/11/18 02:42 134 H 94 10/11/18 01:15 95 H 18 141/78 H 10/11/18 01:13 95 H 141/78 H 10/11/18 01:02 96 H 145/95 H 10/10/18 22:39 90 142/95 H 10/10/18 22:16 104 H 152/89 H 10/10/18 22:11 111 H 157/94 H 10/10/18 22:09 36.6 C 111 H 18 157/94 H 10/10/18 22:06 36.6 C 18 10/10/18 22:05 117 H 151/97 H
[2018-10-11] MEDS ORDERED: BUPIVACAINE 0.25% 30 ML VIAL ONE (09:23)
[2018-10-11] MEDS ORDERED: fentaNYL citrate 100 MCG/2 ML VIAL ONE (09:23)
[2018-10-11] MEDS ORDERED: ePHEDrine sulfate 50 MG/ML AMP ONE (09:23)
[2018-10-11] MEDS ORDERED: fentaNYL 2MCG/ML ROPIV 1.25MG/ML 100 ML BAG EPI ONE (09:24)
--- NOTE | 2018-10-11 09:24 | Anesthesiology Consultation ---
Date of Service October 11, 2018 Assessment & Plan Chart Review Chart Review: Patient NOT seen in Pre Admission Testing and Acceptable Risk for Labor Epidural Consults Requested none ASA ASA3 Proposed Anesthesia Anesthesia Type: Labor Epidural Risk / Benefits Reviewed With: PT / POA / Parent / Guardian, Accepts Plan and Informed Consent Obtained History Height/Weight Height: 1.57 m Weight: 158.304 kg Allergies Allergy/AdvReac Type Severity Reaction Status Date / Time levothyroxine Allergy Intermediate Hives Verified 10/10/18 23:08 Medications Home Medications Medication Instructions Recorded Confirmed Last Taken levothyroxine 200 mcg PO DAILY 10/10/18 10/10/18 10/10/18 08:00 nystatin 1 applic TOPICAL BID PRN 10/10/18 10/10/18 Unknown vit no.[id number] 1 tab PO DAILY 10/10/18 10/10/18 10/10/18 08:00 [ Vitamin] Active Medications Generic Name Dose Route Start Last Admin Trade Name Freq PRN Reason Stop Dose Admin Butorphanol Tartrate 1 mg 10/11/18 01:41 10/11/18 05:29 Stadol IV 11/10/18 01:40 1 mg Q1H PRN Administration Pain Lactated Ringer's 1,000 mls @ 125 mls/hr 10/11/18 01:25 10/11/18 09:19 Lr IV 10/13/18 01:24 999 mls/hr .Q8H PRN Administration L&D Protocol Protocol Penicillin G Potassium 3 mu/ 106 mls @ 100 mls/hr 10/11/18 01:25 10/11/18 06:09 Dextrose IV 10/21/18 01:24 100 mls/hr Q4H PRN Administration Give until delivery Oxytocin 30 units in 500 mls @ 5 mls/hr 10/11/18 06:02 10/11/18 07:52 Pitocin IV 10/13/18 06:01 0.3 units/hr .Q24H PRN 5 mls/hr Labor Induction/Augmentation Titration Protocol 0.3 UNITS/HR NPO Date Last Intake of Fluids: 10/11/18 Time Last Intake of Fluids: 09:00 Date Last Intake of Solids: 10/10/18 Time Last Intake of Solids: 14:00 Past Medical History Medical History Migraines (Chronic) Hypothyroidism (Chronic) Follows with Dr. Strauss GERD (gastroesophageal reflux disease) Controlled with ranitidine Insulin resistance Morbid obesity PCOS (polycystic ovarian syndrome) Bronchitis (Resolved) Headache (Resolved) Pleurisy (Resolved) Urticaria (Resolved) Exercise / Class Metabolic Activity II 4-5 Yardwork/Stairs/Walk up hill Past Family History Family History Other Cancer Diabetes Gallbladder disease Hypertension Past Surgical History Surgical History [place] teeth removed Past Anesthesia History No Hx of Anesthesia Complications and No Family Hx of Anesthesia Complications History of PONV No Hx of PONV and Hx of Motion Sickness Social History Smoking Status: Never smoker Do You Dip or Chew Tobacco: No Hx Alcohol Use: No Hx Substance Use: No substance use type: does not use Physical Exam Vital Signs Last Vital Signs Temp 36.7 C 10/11/18 07:25 Pulse 118 H 10/11/18 09:18 Resp 22 10/11/18 07:25 BP 183/93 H 10/11/18 09:18 Pulse Ox 95 10/11/18 08:30 ENMT Mouth: + TMJ abnormality (H/o locking up but none in the past year ) Thyromental Distance: > or= 3.5 Finger Breadths Mallampati Class: III Neck normal visual inspection; neck extension not limited Respiratory Auscultation: lungs clear to auscultation bilaterally Cardiovascular Rate/Rhythm: regular rate and regular rhythm Heart Sounds: no murmur Psychiatric Orientation: alert and oriented x 3 Testing Laboratory Results Laboratory Tests 10/11/18 01:50 WBC 18.78 H Hgb 14.1 Hct 40.9 Plt Count 229
[2018-10-11] MEDS ORDERED: CALCIUM CARBONATE 500 MG CHEWABLE TAB PO PRN (10:48)
[2018-10-11] MEDS: CALCIUM CARBONATE 500 MG CHEWABLE TAB PO PRN (10:53)
[2018-10-11] MEDS ORDERED: DiphenhydrAMINE HCL 50 MG/ML VIAL IV PRN (12:33)
[2018-10-11] MEDS ORDERED: NALBUPHINE HCL INJ 10 MG/ML AMP IV PRN (12:33)
[2018-10-11] MEDS ORDERED: NALOXONE HCL 1 MG in SODIUM CHLORIDE 0.9% 1000ML 1,000 ML IV PRN (12:33)
[2018-10-11] MEDS ORDERED: NALOXONE HCL 0.4 MG/1 ML VIAL/CARP IV PRN (12:33)
[2018-10-11] MEDS ORDERED: fentaNYL 2MCG/ML ROPIV 1.25MG/ML 100 ML BAG EPI PRN (12:33)
[2018-10-11] MEDS ORDERED: ePHEDrine sulfate 50 MG/ML AMP IV PRN (12:33)
[2018-10-11] MEDS ORDERED: PROMETHAZINE HCL 12.5 MG in SODIUM CHLORIDE 0.9% 50 ML IV PRN (12:33)
[2018-10-11] MEDS: ONDANSETRON INJ 2 MG/ML 2 ML VIAL IV PRN (12:48)
[2018-10-11] MEDS ORDERED: DIPHTHERIA/TETANUS/PERTUSSIS 0.5 ML SYR/VIAL IM ONE (17:15)
[2018-10-11] MEDS ORDERED: HYDROCORTISONE ACETATE 25 MG SUPP PR PRN (17:15)
[2018-10-11] MEDS ORDERED: SUPERCREAM 0.870% 15 GM JAR EXT PRN (17:15)
[2018-10-11] MEDS ORDERED: BENZOCAINE 20% AER SPR 82.5 GM CAN EXT PRN (17:15)
--- NOTE | 2018-10-11 17:40 | Anesthesia Procedure Note ---
Date of Service October 11, 2018 Anesthesia Post Epidural Note Vital Signs Vital Signs: Temp Pulse Pulse Resp BP BP Pulse Ox 10/11/18 17:34 125 H 129/69 10/11/18 17:24 130 H 137/76 10/11/18 17:14 139 H 130/80 10/11/18 17:04 134 H 152/77 H 10/11/18 16:54 142 H 136/63 10/11/18 16:50 147 H 96 10/11/18 16:45 149 H 96 10/11/18 16:44 190 H 126/85 74 L 10/11/18 16:40 158 H 96 10/11/18 16:38 137 H 85 L 10/11/18 16:36 36.7 C 24 10/11/18 16:35 156 H 237/100 H 85 L 10/11/18 16:30 138 H 95 10/11/18 16:26 140 H 73 L 10/11/18 16:25 142 H 96 10/11/18 16:24 137 H 152/85 H 10/11/18 16:20 133 H 95 10/11/18 16:19 144 H 82 L 10/11/18 16:15 134 H 149/80 H 97 10/11/18 16:11 119 H 78 L 10/11/18 16:10 130 H 96 10/11/18 16:06 145 H 79 L 10/11/18 16:05 147 H 144/79 H 93 10/11/18 16:01 128 H 83 L 10/11/18 16:00 126 H 89 L 10/11/18 15:55 142 H 86 L 10/11/18 15:54 134 H 135/70 10/11/18 15:50 139 H 97 10/11/18 15:45 133 H 131/69 98 10/11/18 15:40 125 H 98 10/11/18 15:35 123 H 98 10/11/18 15:34 116 H 118/70 10/11/18 15:30 117 H 98 10/11/18 15:25 124 H 99 10/11/18 15:24 117 H 111/69 10/11/18 15:20 119 H 99 10/11/18 15:15 123 H 98 10/11/18 15:14 120 H 121/63 10/11/18 15:10 120 H 97 06/05/19 15:05 127 H 98 10/11/18 15:04 129 H 112/55 L 10/11/18 15:00 132 H 96 10/11/18 14:56 36.8 C 22 10/11/18 14:55 126 H 97 10/11/18 14:54 137 H 123/57 L 10/11/18 14:50 123 H 97 10/11/18 14:45 146 H 133/69 96 10/11/18 14:40 129 H 96 10/11/18 14:36 123 H 128/75 10/11/18 14:35 127 H 97 10/11/18 14:30 130 H 95 10/11/18 14:25 125 H 95 10/11/18 14:24 122 H 140/80 10/11/18 14:20 124 H 96 10/11/18 14:15 129 H 96 10/11/18 14:10 121 H 95 10/11/18 14:05 127 H 95 10/11/18 14:04 131 H 128/70 10/11/18 14:00 132 H 96 10/11/18 13:55 119 H 95 10/11/18 13:54 130 H 127/71 10/11/18 13:50 122 H 97 10/11/18 13:45 134 H 123/57 L 94 10/11/18 13:40 128 H 97 10/11/18 13:35 118 H 97 10/11/18 13:34 130 H 116/59 L 10/11/18 13:30 130 H 95 10/11/18 13:25 127 H 121/56 L 96 10/11/18 13:20 131 H 95 10/11/18 13:15 119 H 128/63 91 10/11/18 13:10 130 H 95 10/11/18 13:05 132 H 95 10/11/18 13:04 134 H 106/51 L 10/11/18 13:00 132 H 96 10/11/18 12:55 136 H 97 10/11/18 12:54 139 H 122/51 L 10/11/18 12:50 143 H 97 10/11/18 12:45 145 H 133/66 97 10/11/18 12:40 130 H 95 10/11/18 12:35 139 H 95 10/11/18 12:33 131 H 120/56 L 10/11/18 12:30 144 H 118/54 L 96 10/11/18 12:27 139 H 122/58 L 10/11/18 12:25 131 H 96 10/11/18 12:24 136 H 120/56 L 10/11/18 12:21 142 H 146/61 H 10/11/18 12:20 140 H 94 10/11/18 12:18 133 H 139/80 10/11/18 12:15 129 H 139/74 96 10/11/18 12:12 127 H 154/83 H 10/11/18 12:11 125 H 166/92 H 10/11/18 12:10 128 H 171/101 H 95 10/11/18 12:09 127 H 170/100 H 10/11/18 12:05 127 H 96 10/11/18 12:00 122 H 95 10/11/18 11:56 36.9 C 118 H 24 146/93 H 10/11/18 11:55 122 H 97 10/11/18 11:50 118 H 97 10/11/18 11:45 118 H 97 10/11/18 11:40 120 H 96 10/11/18 11:39 112 H 141/87 H 10/11/18 11:35 127 H 94 10/11/18 11:30 123 H 97 10/11/18 11:25 109 H 93 10/11/18 11:24 108 H 131/77 10/11/18 11:20 109 H 93 10/11/18 11:15 110 H 95 10/11/18 11:10 112 H 130/73 96 10/11/18 11:05 112 H 95 10/11/18 11:00 114 H 96 10/11/18 10:55 118 H 94 10/11/18 10:53 117 H 123/73 10/11/18 10:50 113 H 128/69 96 10/11/18 10:47 113 H 119/70 10/11/18 10:45 114 H 122/74 96 10/11/18 10:41 120 H 125/57 L 10/11/18 10:40 133 H 94 10/11/18 10:38 125 H 123/67 10/11/18 10:35 146 H 124/74 95 06/05/19 10:32 112 H 128/73 06/05/19 10:30 114 H 95 10/11/18 10:29 112 H 131/68 10/11/18 10:26 114 H 136/73 10/11/18 10:25 115 H 90 10/11/18 10:23 121 H 133/68 10/11/18 10:20 112 H 134/76 96 10/11/18 10:17 114 H 123/56 L 10/11/18 10:15 121 H 95 10/11/18 10:14 122 H 124/59 L 10/11/18 10:13 112 H 88/55 L 10/11/18 10:11 112 H 84/52 L 10/11/18 10:10 119 H 97 10/11/18 10:08 129 H 98/55 L 10/11/18 10:06 120 H 101/55 L 10/11/18 10:05 129 H 97 10/11/18 10:02 117 H 99/55 L 10/11/18 10:00 123 H 97 10/11/18 09:59 123 H 100/50 L 10/11/18 09:56 129 H 109/57 L 10/11/18 09:55 146 H 97 10/11/18 09:50 128 H 98 10/11/18 09:45 132 H 98 10/11/18 09:40 146 H 98 10/11/18 09:35 112 H 97 10/11/18 09:18 118 H 183/93 H 10/11/18 08:30 118 H 95 10/11/18 08:25 117 H 97 10/11/18 08:20 117 H 95 10/11/18 08:15 128 H 98 10/11/18 08:14 114 H 82 L 10/11/18 07:26 112 H 143/85 H 10/11/18 07:25 36.7 C 22 10/11/18 06:45 109 H 93 10/11/18 06:40 109 H 94 10/11/18 06:35 120 H 95 10/11/18 06:30 109 H 93 10/11/18 06:25 108 H 94 10/11/18 06:20 112 H 92 10/11/18 06:15 117 H 94 10/11/18 06:10 109 H 91 10/11/18 06:05 107 H 93 10/11/18 06:00 114 H 93 10/11/18 05:53 127 H 92 10/11/18 05:48 111 H 93 10/11/18 05:43 108 H 94 10/11/18 05:38 109 H 95 10/11/18 05:36 110 H 120/67 10/11/18 05:34 109 H 85 L 10/11/18 05:33 109 H 94 10/11/18 05:28 111 H 94 06 05:23 113 H 94 10/11/18 05:18 109 H 96 10/11/18 05:13 128 H 95 10/11/18 05:01 109 H 98 10/11/18 04:56 105 H 95 10/11/18 04:51 117 H 96 10/11/18 04:46 102 H 96 10/11/18 04:41 102 H 96 10/11/18 04:36 110 H 95 10/11/18 04:32 36.5 C 18 10/11/18 04:31 110 H 147/80 H 91 10/11/18 04:26 95 H 93 05 04:21 93 H 94 10/11/18 04:16 93 H 94 10/11/18 04:11 97 H 95 10/11/18 04:06 93 H 92 10/11/18 04:01 96 H 92 10/11/18 03:56 98 H 92 10/11/18 03:51 111 H 93 10/11/18 03:46 97 H 91 10/11/18 03:41 106 H 92 10/11/18 03:36 105 H 93 10/11/18 03:31 98 H 91 10/11/18 03:26 101 H 90 10/11/18 03:21 102 H 94 10/11/18 03:16 107 H 94 05 03:11 107 H 93 06 03:10 105 H 142/86 H 10/11/18 03:06 111 H 94 10/11/18 03:01 113 H 92 10/11/18 02:52 138 H 94 10/11/18 02:47 120 H 93 10/11/18 02:42 134 H 94 10/11/18 01:15 95 H 18 141/78 H 10/11/18 01:13 95 H 141/78 H 06/05/19 01:02 96 H 145/95 H 10/10/18 22:39 90 142/95 H 10/10/18 22:16 104 H 152/89 H 10/10/18 22:11 111 H 157/94 H 10/10/18 22:09 36.6 C 111 H 18 157/94 H 10/10/18 22:06 36.6 C 18 10/10/18 22:05 117 H 151/97 H Notes Mental Status: alert / awake / arousable Patient Amnestic to Procedure: No Nausea / Vomiting: adequately controlled Pain: adequately controlled Airway Patency, RR, SpO2: stable & adequate BP & HR: stable & adequate Hydration State: stable & adequate Anesthetic Complications: no major complications apparent Epidural: Removed without complications and With tip intact Notes: Pt doing well. Denies having any POPE, backache, paresthesia. VSS. Epidural site looks clean and dry without signs of edema or erythema.
[2018-10-11] MEDS: IBUPROFEN 600 MG TAB PO PRN (18:25)
--- NOTE | 2018-10-11 20:00 | Delivery Summary ---
DATE OF OPERATION: 10/11/2018 PROCEDURE: Normal spontaneous vaginal delivery. SURGEON: Prem Cheney MD. PREOPERATIVE DIAGNOSES: 1. Single intrauterine at term. 2. Gestational hypertension. 3. Group B strep positive. POSTOPERATIVE DIAGNOSES: 1. Single intrauterine at term. 2. Gestational hypertension. 3. Group B strep positive. 4. Delivered. ESTIMATED BLOOD LOSS: 300 mL DRAINS: None. FLUIDS: Continuous lactated ringer. URINE OUTPUT: Not measured. COMPLICATIONS: None. FINDINGS: Viable with weight pending and Apgars of 7 and 9 at 1 and 5 minutes respectively. INDICATIONS: The patient is a 28-year-old G1, P0, admitted at term for early labor and elevated blood pressures, meeting criteria for gestational hypertension during her labor course. At first check the patient was found to be 1 cm dilated, 50% effaced, -2 station. The patient progressed in labor to approximately 3 cm dilated, 80% effaced, -2 station. The patient received some Stadol for pain control and after was noted to have spacing of contractions, the patient was started on oxytocin. The patient continued to progress in labor. She underwent artificial rupture of membranes with placement of a scalp electrode and IUPC. The patient then received an epidural and continued to progress in labor until she was 10 cm dilated, 100% effaced, +1-2 station. At that time, the patient felt the urge to push and began to push and pushed for approximately 1 hour to achieve delivery. PROCEDURE: The patient progressed to 10 cm dilated, 100% effaced, +1-2 station, pushed over intact perineum with epidural anesthesia and delivered a viable with weight and Apgars as noted above. The head of the delivered in OP position, restituted to left transverse. Nuchal cord x1 was noted which was easily reduced. Body and shoulders quickly followed. The was delivered to the maternal abdomen and was not noted to be initially vigorous. The cord was clamped and cut. was taken over to an awaiting nursery staff and soon became vigorous. Cord segment and cord blood were obtained. Attention was then turned to delivery. The placenta was delivered intact, 3-vessel cord with gentle cord traction. On inspection of the perineum, cervix, and vagina, there is noted to be no lacerations. Needle, sponge and instrument counts were correct at the completion of the case. I attest to the content of the Intraoperative Record and any orders documented therein. Any exception s are noted below.
[2018-10-11] MEDS ORDERED: FLUCONAZOLE 50 MG TAB PO SCH (21:00)
[2018-10-11] MEDS: DOCUSATE SODIUM 100 MG CAP PO SCH (21:02)
[2018-10-12] MEDS: ONDANSETRON INJ 2 MG/ML 2 ML VIAL IV PRN (00:02)
[2018-10-12] MEDS: IBUPROFEN 600 MG TAB PO PRN ×5 (00:02→20:47)
[2018-10-12 06:34] LABS: Hematocrit (blood only) 33.9 % (37-47); Hemoglobin 11.4 g/dL (12.0-16.0)
[2018-10-12] MEDS: LEVOTHYROXINE SODIUM 200 MCG TABLET PO SCH (06:36)
--- NOTE | 2018-10-12 06:37 | Obstetrical Progress Note ---
Date of Service <Ole Montes MD - Last Filed: 10/12/18 06:37> October 12, 2018 Assessment & Plan <Ole Montes MD - Last Filed: 10/12/18 06:37> (1) Vaginal delivery: Pawel is a 28yo F who presents at 40+ in labor now s/p PPD#1 - She is GBS positive, blood type O+ - Feels well today. Eating well, voiding well, ambulating well. - Pain well controlled with ibuprofen 600mg Q4H PRN. - going well, expect cramping pain to slowly improve - Routine care - After discharge will have [address] Cheney. Subjective <Ole Montes MD - Last Filed: 10/12/18 06:37> Ambulation: ambulating normally Voiding: no voiding problems Passing Gas:: Yes Diet Tolerance:: regular diet Lochia:: Moderate Feeding Type:: breast feeding Current Pain Level(1-10): 7 (improved w/ rx, worse with ) Physical Exam <Ole Montes MD - Last Filed: 10/12/18 06:37> Vital Signs (Past 24 Hours) Last Vital Signs Temp 37 C 10/12/18 03:10 Pulse 93 H 10/12/18 03:10 Resp 18 10/12/18 03:10 BP 107/60 10/12/18 03:10 Pulse Ox 96 10/11/18 16:50 General: Alert, oriented. No acute distress. Cardiac: Regular rate and rhythm, no murmurs/rubs/gallops. Respiratory: Clear to auscultation anterior and posteriorly, no wheezes/rales/rhonchi. No increased work of breathing. Symmetrical chest rise. No respiratory distress. Abdomen: Soft, nontender, nondistended. Bowel sounds present. Uterus: Uterine fundus firm, palpable 2cm below umbilicus. Lower Extremities: No lower extremity edema or swelling. No deep calf pain. Leela's negative bilaterally. <Prem Cheney MD - Last Filed: 10/16/18 07:19> Co-Signing Physician Notes Patient seen and agree with the above findings and plan Resident Activity Tracking <Ole Montes MD - Last Filed: 10/12/18 06:37> Resident Involvement: Resident Care Provided Care Provided: [facility]
[2018-10-12] MEDS: ACETAMINOPHEN 325 MG TAB PO PRN ×2 (06:38→13:47)
[2018-10-12] MEDS: PRENATAL VITAMIN 1 TAB PO SCH (09:15)
[2018-10-12] MEDS: DOCUSATE SODIUM 100 MG CAP PO SCH ×2 (09:15→20:47)
[2018-10-12] MEDS ORDERED: BISACODYL 5 MG TABEC PO SCH (20:00)
[2018-10-12] MEDS: CALCIUM CARBONATE 500 MG CHEWABLE TAB PO PRN (20:49)
[2018-10-13] MEDS ORDERED: BISACODYL 10 MG SUPP PR PRN
[2018-10-13] MEDS: IBUPROFEN 600 MG TAB PO PRN ×2 (00:09→08:54)
--- NOTE | 2018-10-13 06:25 | Obstetrical Progress Note ---
Date of Service <Ole Montes MD - Last Filed: 10/13/18 06:25> October 13, 2018 Assessment & Plan <Ole Montes MD - Last Filed: 10/13/18 06:25> (1) Vaginal delivery: Pawel is a 28yo F who presents at 40+ in labor now s/p PPD#2 - She is GBS positive, blood type O+ - Feels well today. Eating well, voiding well, ambulating well. - Pain well controlled with ibuprofen 600mg Q4H PRN. - well - Routine care - After discharge will have [address] Cheney. Subjective <Ole Montes MD - Last Filed: 10/13/18 06:25> Ambulation: ambulating normally Voiding: no voiding problems Passing Gas:: Yes Diet Tolerance:: regular diet Lochia:: Small Feeding Type:: breast feeding Current Pain Level(1-10): 4 Review of Systems Denies fever, chills, sweats Denies shortness of breath, difficulty breathing, chest pain, palpitations, chest pressure. Denies breast pain. Denies dysuria. Denies headache. Physical Exam <Ole Montes MD - Last Filed: 10/13/18 06:25> Vital Signs (Past 24 Hours) Last Vital Signs Temp 37.1 C 10/12/18 23:55 Pulse 106 H 10/12/18 23:55 Resp 18 10/12/18 23:55 BP 113/64 10/12/18 23:55 Pulse Ox 97 10/12/18 15:10 General: Alert, oriented. No acute distress. Cardiac: Regular rate and rhythm, no murmurs/rubs/gallops. Respiratory: Clear to auscultation anterior and posteriorly, no wheezes/rales/rhonchi. No increased work of breathing. Symmetrical chest rise. No respiratory distress. Abdomen: Soft, nontender, nondistended. Bowel sounds present. Uterus: Uterine fundus firm, palpable 2cm below umbilicus. Lower Extremities: No new lower extremity edema or swelling. No deep calf pain. Leela's negative bilaterally. <Micki Castro MD - Last Filed: 10/13/18 07:54> Co-Signing Physician Notes I have reviewed the resident's note and examined the patient myself, and agree with the note above. Resident Activity Tracking <Ole Montes MD - Last Filed: 10/13/18 06:25> Resident Involvement: Resident Care Provided Care Provided: Adult [facility]
[2018-10-13] MEDS: LEVOTHYROXINE SODIUM 200 MCG TABLET PO SCH (06:28)
[2018-10-13] MEDS: PRENATAL VITAMIN 1 TAB PO SCH (08:52)
[2018-10-13] MEDS: DOCUSATE SODIUM 100 MG CAP PO SCH (08:52)
== END 2018-10-13 13:33 | disposition home or self-care (01) | DRG 807 ==
LOC: OPB 21:54 → 4S1 21:54 → 4S2 10-11 19:44